=== PATIENT | male | born 1945 | race Caucasian/White ===

== ENCOUNTER 2017-06-26 08:39 | Outpatient (CLI) | payer MEDICARE ==
--- NOTE | 2017-06-26 11:54 | MRI ---
BRAIN MRI WITHOUT CONTRAST: Date: 06-26-17 Comparison: None. History: Meningioma. Technique: Multiplanar, multisequence MR imaging of the brain obtained without contrast. FINDINGS: Evaluation for intracranial neoplasia, specifically meningioma, is limited without contrast media. Prior CT of the head performed 11-13-16 demonstrated a 5-6 mm hyperdense focus in the high medial left parietal region. Gradient echo imaging demonstrates a focus of blooming artifact in this region eric suring 4-5 mm. Differential diagnosis would include a small nonspecific calcification or a tiny calc ified meningioma. No associated mass effect. 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 This was present on a cervical spine MRI performed 07-02-12. There are numerous foci of increased T2 and FLAIR signal throughout the periventricular deep and sub cortical white matter, evidence of small vessel disease. There is patchy increased T2 and FLAIR sign al within the fani, also on the basis of small vessel disease. A punctate focus of blooming artifact is noted on axial image 17 within the subcortical white matter of the posterior left parietooccipit al region, likely on the basis of a punctate focus of prior hemorrhage or calcification. Diffusion weighted imaging demonstrates no evidence for acute infarction. IMPRESSION: 1. No acute findings are seen. Punctate focus of blooming artifact in the high left medial parietal region correlates with the prior abnormality on CT which likely represents a small calcified meningi amanda or punctate calcification. 2. Prominent small vessel disease. POS: [facility]
== END 2017-06-26 08:40 | disposition home or self-care (01) ==
LOC: MRI 08:39
PROVIDERS: ATTEND Family Medicine
DX: D32.9 Benign neoplasm of meninges, unspecified (principal); I67.9 Cerebrovascular disease, unspecified
CPT/HCPCS: 70551

== ENCOUNTER 2017-10-27 07:07 | Emergency (ER) | payer MEDICARE ==
[2017-10-27] MEDS ORDERED: Dexamethasone 10 MG/ML VIAL ONE (07:26)
== END 2017-10-27 07:50 | disposition home or self-care (01) ==
LOC: SCSER 07:07
DX: M54.5 Low back pain (principal); G89.29 Other chronic pain; I25.10 Atherosclerotic heart disease of native coronary artery without angina pectoris; K21.9 Gastro-esophageal reflux disease without esophagitis; E78.5 Hyperlipidemia, unspecified; F32.9 Major depressive disorder, single episode, unspecified; F17.210 Nicotine dependence, cigarettes, uncomplicated; X50.1XXA Overexertion from prolonged static or awkward postures, initial encounter
CPT/HCPCS: 96372; J1100

== ENCOUNTER 2017-11-27 10:40 | Outpatient (CLI) | payer MEDICARE ==
--- NOTE | 2017-11-27 13:09 | RAD ---
THREE VIWS LUMBAR SPINE: DATE: 11/27/17. HISTORY: Acute lumbar radiculopathy, low back pain with pain radiating down the left leg for a month. FINDINGS: Lateral neutral, flexion, and extension imaging provided. Neutral imaging demonstrates no anterolisthesis or retrolisthesis. At L2-3, there is disk space narr owing and anterior osteophyte formation. At the L5-S1 level, there is disk space narrowing with degenerative end plate change as well as vacuu m disk formation and anterior osteophyte formation. With flexion, there is anterolisthesis of L4 on L5 measuring approximately 3-4 mm. With extension, t here is no anterolisthesis or retrolisthesis. IMPRESSION: Lower lumbar spine degenerative change, most prominent at the L5-S1 level. With flexion, there is mil d anterolisthesis at L4-5 measuring in the 3-4 mm range. POS: [facility]
--- NOTE | 2017-11-27 13:58 | MRI ---
MRI LUMBAR SPINE: DATE: 11/27/17. COMPARISON: 09/22/07. HISTORY: Low back pain with pain radiating down the left lower extremity for a month, acute lumbar radiculopat hy. TECHNIQUE: Multiplanar, multisequence MR imaging of the lumbar spine provided without contrast. FINDINGS: The sagittal STIR imaging demonstrates no focal area of osseous marrow edema. No anterolisthesis or retrolisthesis noted within the lumbar spine. There is no anterolisthesis or retrolisthesis noted. T12-L1: Mild bilateral facet hypertrophy. Intervertebral disk height and signal intensity is within normal limits with no significant central canal or neural foraminal stenosis. L1-2: Intervertebral disk height and signal intensity is within normal limits. There is mild bilate ral facet hypertrophy with no significant central canal or neural foraminal stenosis. L2-3: There is disk space narrowing and disk desiccation with mild degenerative anterior edematous e nd plate change and minimal disk bulge. This results in no significant central canal stenosis. Ther e is a small left foraminal disk protrusion with no associated neural foraminal stenosis on either si de. L3-4: There is a left paracentral disk extrusion with inferior migration of approximately 1.4 cm in the left paracentral region causing prominent left lateral recess stenosis at the axial level of the superior portion of the L4 vertebral body. This is stable when compared to the 2008 exam. At L3-4, there is no significant neural foraminal stenosis. The extruded disk in the left paracentral region abuts the L4 nerve root on the left just proximal to the left neural foramen. L4-5: Intervertebral disk height is normal. Mild bilateral facet hypertrophy. There is no signific ant central canal or neural foraminal stenosis. L5-S1: There is bilateral facet hypertrophy. There is disk space narrowing, disk desiccation, and v acuum disk formation as well as disk bulge. There is no significant central canal stenosis. On the basis of disk bulge and osteophyte formation, there is moderate bilateral neural foraminal stenosis, left greater than right. Review of the peritoneal structures demonstrates an infrarenal abdominal aortic aneurysm measuring 3. 8 x 3.5 cm. There is diverticulosis of the imaged sigmoid colon. IMPRESSION: 1. Degenerative disk disease as above. The most significant finding in the lumbar spine is a disk e xtrusion in the left paracentral region at L3-4 causing left lateral recess stenosis and abutting the left L4 nerve root. 2. Infrarenal abdominal aortic aneurysm measuring in the 3.8 x 3.5 cm range. 3. Incompletely imaged sigmoid diverticulosis. CODE T POS: [facility]
== END 2017-11-27 10:41 | disposition home or self-care (01) ==
LOC: TBSIIMAG 10:40
PROVIDERS: ATTEND Neurological Surgery
DX: M47.26 Other spondylosis with radiculopathy, lumbar region (principal); M51.16 Intervertebral disc disorders with radiculopathy, lumbar region; M43.16 Spondylolisthesis, lumbar region; M48.061 Spinal stenosis, lumbar region without neurogenic claudication; I71.4 Abdominal aortic aneurysm, without rupture
CPT/HCPCS: 72100; 72148

== ENCOUNTER 2024-01-21 09:40 | Outpatient (CLI) | payer MEDICARE | END 2024-01-21 09:41 | disposition home or self-care (01) | LOC: RAD 09:40 | PROVIDERS: ATTEND Internal Medicine | DX: R06.00 Dyspnea, unspecified (principal); R91.8 Other nonspecific abnormal finding of lung field; J44.9 Chronic obstructive pulmonary disease, unspecified | CPT/HCPCS: 71046 ==

== ENCOUNTER 2024-03-01 08:30 | Day surgery (SDC) | payer MEDICARE ==
[2024-03-01 08:48] LABS: #Basophils 0.06 10x3/uL (0.0-0.2); %Basophils 0.5 % (0.0-1.0); %Eosinophils 1.1 % (0.0-10.0); %Monocytes 7.6 % (0.0-10.0); %Neutrophils 74.3 % (42.0-75.0); Hematocrit 39.7 % (42.0-52.0); Hemoglobin 12.6 g/dL (14.0-18.0); Mean Corpuscular HGB CONC 31.7 g/dL (32.0-36.0); Mean Corpuscular Hemoglobin 27.2 pg (27.0-31.0); Mean Corpuscular Volume 85.6 fL (78.0-98.0); Mean Platelet Volume 9.6 fL (7.4-10.4); Platelet Count 245 10x3/uL (130-400); Red Blood Cell (RBC) Count 4.64 mill/uL (4.70-6.10)
[2024-03-01 09:02] LABS: INR-International Normal Ratio 1.1; Prothrombin Time 14.4 sec (12.0-14.7)
[2024-03-01 09:03] LABS: PTT 33.2 sec (22.9-36.1)
[2024-03-01 09:41] VITALS: BP 150/90; TEMP 97.4
[2024-03-01] MEDS ORDERED: Sodium Bicarbonate 2.5 MEQ/5 ML SDV ONE (09:57)
[2024-03-01] MEDS ORDERED: Lidocaine 1% PF 5 ML VIAL ONE (09:57)
[2024-03-01] MEDS ORDERED: Midazolam HCl 2 mg/2 ml Vial ONE (09:57)
[2024-03-01] MEDS ORDERED: fentaNYL 50 mcg/mL 1 mL Vial ONE (09:57)
== END 2024-03-01 14:00 | disposition home or self-care (01) ==
LOC: CT 08:30
PROVIDERS: ATTEND Internal Medicine
PROC: 0BBC3ZX Excision of Right Upper Lung Lobe, Percutaneous Approach, Diagnostic (ICD-10-PCS; principal; 2024-03-01)
DX: C34.11 Malignant neoplasm of upper lobe, right bronchus or lung (principal)
CPT/HCPCS: 32408; 36415; 71045; 77012; 85025; 85610; 85730; 88305; 88333; 88334; 88341; 88342; J2250; J3010

== ENCOUNTER 2024-03-25 11:12 | Outpatient (CLI) | payer MEDICARE ==
[2024-03-25] MEDS ORDERED: Magnevist 469MG/ML 20 ML VIAL ONE (11:20)
== END 2024-03-25 11:13 | disposition home or self-care (01) ==
LOC: MRI 11:12
PROVIDERS: ATTEND Internal Medicine Hematology & Oncology
DX: C34.81 Malignant neoplasm of overlapping sites of right bronchus and lung (principal); R90.82 White matter disease, unspecified
CPT/HCPCS: 70553; 76377; A9579

== ENCOUNTER 2024-03-26 08:45 | Outpatient (CLI) | payer MEDICARE | END 2024-03-26 08:46 | disposition home or self-care (01) | LOC: PET 08:45 | PROVIDERS: ATTEND Internal Medicine Hematology & Oncology | DX: C34.81 Malignant neoplasm of overlapping sites of right bronchus and lung (principal); I71.43 Infrarenal abdominal aortic aneurysm, without rupture; R59.0 Localized enlarged lymph nodes | CPT/HCPCS: 78815; A9552 ==

== ENCOUNTER → 2024-07-20 | Outpatient (CLI) | payer MEDICARE | LOC: PET 11:00 | PROVIDERS: ATTEND Internal Medicine Hematology & Oncology | DX: C34.81 Malignant neoplasm of overlapping sites of right bronchus and lung (principal); C21.0 Malignant neoplasm of anus, unspecified; R91.8 Other nonspecific abnormal finding of lung field | CPT/HCPCS: 78815; A9552 ==

== ENCOUNTER 2024-08-08 04:05 | Inpatient (IN) | payer MEDICARE ==
[2024-08-08] MEDS ORDERED: cefTRIAXone (ROCEPHIN) 1 GM VIAL ONE (04:23)
[2024-08-08] MEDS ORDERED: Sodium Chloride 0.9% 100 ML ONE (04:23)
[2024-08-08] MEDS ORDERED: Azithromycin 500 MG VIAL ONE (04:23)
[2024-08-08 04:25] LABS: Actual Bicarbonate (HCO3v) 23.1 mEq/L (22-28); Analyzer IN Cardio ER; Base Excess -4.4 mEq/L (-2.0 to +3.0); Calcium, Ionized (venous) 1.11 mmol/L (1.16-1.32); Chloride (VBG) 105 mmol/L (98-106); Hematocrit-VBG 39 % (42.0-52.0); Hemoglobin (Hb) 13.4 g/dL (12.6-17.4); Potassium (VBG) 3.95 mmol/L (3.70-5.30); Sodium 139 mmol/L (133-146); pH (venous) 7.263 (7.32-7.43)
[2024-08-08] MEDS ORDERED: Albuterol 2.5 MG (3 mL) NEB ONE (04:31)
[2024-08-08 04:42] LABS: Actual Bicarbonate (HCO3a) 20.2 mEq/L (22-28); Analyzer IN Cardio ER; Base Excess (BEa) -5.2 mEq/L (-2.0 to +3.0); CO2 Tension 38.9 mmHg (35.0-45.0); Hematocrit-ABG 36 % (42.0-52.0); Hemoglobin (Hb) 12.4 g/dL (14.0-18.0); O2 Tension (PaO2), arterial 243.1 mmHg (> 70.0); Potassium - ABG Lab 3.49 mmol/L (3.70-5.30); pH, Arterial 7.333 (7.35-7.45)
[2024-08-08] MEDS ORDERED: NOREPINEPHRINE 8 MG/250 ML-D5W 250 ML ONE (05:03)
[2024-08-08 05:15] LABS: ALT (SGPT) 14 U/L (8-55); AST (SGOT) 20 U/L (5-34); Albumin 3.5 g/dL (3.4-4.8); Alkaline Phosphatase 121 U/L (40-110); Anion Gap 14 mmol/L (10-20); BUN (Urea Nitrogen) 12 mg/dL (8.4-25.7); Bilirubin, Total 0.4 mg/dL (0.2-1.2); Calc. Creatinine Clearance 0 mL/min (70-130); Calcium 8.5 mg/dL (7.8-10.44); Carbon Dioxide 21 mmol/L (23-31); Chloride 106 mmol/L (98-107); Estimated GFR 88; Globulin 3.9 g/dL (2.4-3.5); Glucose 216 mg/dL (83-110); Magnesium 2.7 mg/dL (1.6-2.6); Potassium 3.8 mmol/L (3.5-5.1); Protein, Total 7.4 g/dL (5.8-8.1); Sodium 137 mmol/L (136-145)
[2024-08-08 05:18] LABS: ALV-art Gradient 136.075 mmHg (0-20); Puncture Site Right Radial artery
[2024-08-08 05:19] LABS: #Basophils Less than 0.03 10x3/uL (0.0-0.2); %Basophils 0.2 % (0.0-1.0); %Eosinophils 1.4 % (0.0-10.0); %Lymphocytes 11.6 % (21.0-51.0); %Monocytes 6.8 % (0.0-10.0); %Neutrophils 79.5 % (42.0-75.0); Hematocrit 38.2 % (42.0-52.0); Hemoglobin 12.5 g/dL (14.0-18.0); Mean Corpuscular HGB CONC 32.7 g/dL (32.0-36.0); Mean Corpuscular Hemoglobin 31.4 pg (27.0-31.0); Mean Platelet Volume 10.8 fL (7.4-10.4); Platelet Count 134 10x3/uL (130-400); RBC Distribution Width 13.8 % (11.5-14.5); Red Blood Cell (RBC) Count 3.98 mill/uL (4.70-6.10)
[2024-08-08 05:20] LABS: Troponin I 0.062 ng/mL (< 0.028)
[2024-08-08] MEDS ORDERED: Iopamidol-370 76% 500 ML MDV (1 ML CHARGE) ONE (08:25)
[2024-08-08] MEDS ORDERED: NOREPINEPHRINE 8 MG/250 ML-D5W 250 ML IVPB PRN (08:40)
[2024-08-08] MEDS ORDERED: Ondansetron PF 4 MG/2 ML Vial IVP PRN (08:40)
[2024-08-08] MEDS ORDERED: Electrolyte Replacement Protocol 1 EACH IVPB SCH (08:40)
[2024-08-08] MEDS ORDERED: FLUTICASONE PROPION IH SCH (09:00)
[2024-08-08] MEDS ORDERED: SALMETEROL IH SCH (09:00)
[2024-08-08] MEDS ORDERED: [UNRECOGNIZED DRUG - OTHER] IH SCH (09:00)
[2024-08-08] MEDS ORDERED: Dextrose 5% in Water 1,000 ML IV PRN (09:09)
[2024-08-08] MEDS ORDERED: Dextrose 50% Abboject 50 ML SYRINGE SLOW IVP PRN (09:09)
[2024-08-08] MEDS ORDERED: Glucagon 1 MG/ML KIT IM PRN (09:09)
[2024-08-08] MEDS: FLUoxetine HCl 20 MG CAP PO SCH (09:17)
[2024-08-08] MEDS: Pantoprazole DR 40 MG TAB PO SCH (09:17)
[2024-08-08] MEDS: Tamsulosin HCl 0.4 MG CAP PO SCH (09:18)
[2024-08-08 09:19] LABS: Troponin I 0.252 ng/mL (< 0.028)
[2024-08-08 09:25] VITALS: BMI 19.6
[2024-08-08] MEDS: Ipratropium/Albuterol 3 ML NEB EZPAP SCH (10:56)
[2024-08-08] MEDS ORDERED: methylPREDNISolone Sod Succ 40 MG VIAL IVP SCH (12:00)
[2024-08-08] MEDS ORDERED: methylPREDNISolone Sod Succ/PF 125 MG/2 ML VIAL IVP SCH (12:00)
[2024-08-08 12:54] LABS: Troponin I 0.273 ng/mL (< 0.028)
[2024-08-08] MEDS ORDERED: Ipratropium/Albuterol 3 ML NEB NEB SCH (13:00)
[2024-08-08] MEDS: Acetaminophen 325 MG TAB PO PRN (17:58)
[2024-08-08] MEDS: Mometasone 200 MCG/Formoterol 5 MCG 120 PUFF INHALER INH SCH (19:12)
[2024-08-08] MEDS: Gabapentin 300 MG CAP PO SCH (20:51)
[2024-08-08] MEDS: methylPREDNISolone Sod Succ 40 MG VIAL IVP SCH (20:51)
[2024-08-08] MEDS ORDERED: Albuterol 200 PUFF (6.7GM INHALER) INH PRN (23:45)
[2024-08-09] MEDS: Sodium Chloride 0.65% Nasal 44 ML BOT EA NARE PRN (00:47)
[2024-08-09] MEDS: cefTRIAXone\\ROCEPHIN 1 GM in Sodium Chloride 0.9% 100 ML IVPB SCH (05:11)
[2024-08-09 05:22] LABS: Actual Bicarbonate (HCO3v) 23.4 mEq/L (22-28); Base Excess -1.5 mEq/L (-2.0 to +3.0); Calcium, Ionized (venous) 1.11 mmol/L (1.16-1.32); Chloride (VBG) 106 mmol/L (98-106); Hematocrit-VBG 30 % (42.0-52.0); Hemoglobin (Hb) 10.3 g/dL (12.6-17.4); Potassium (VBG) 3.75 mmol/L (3.70-5.30); Sodium 139 mmol/L (133-146); pH (venous) 7.381 (7.32-7.43)
[2024-08-09 05:47] LABS: ALT (SGPT) 11 U/L (8-55); AST (SGOT) 14 U/L (5-34); Alkaline Phosphatase 78 U/L (40-110); Anion Gap 14 mmol/L (10-20); BUN (Urea Nitrogen) 21 mg/dL (8.4-25.7); Bilirubin, Total 0.4 mg/dL (0.2-1.2); Calc. Creatinine Clearance 62 mL/min (70-130); Calcium 8.1 mg/dL (7.8-10.44); Carbon Dioxide 21 mmol/L (23-31); Chloride 107 mmol/L (98-107); Estimated GFR 88; Glucose 152 mg/dL (83-110); Potassium 3.7 mmol/L (3.5-5.1); Sodium 138 mmol/L (136-145)
[2024-08-09 05:52] LABS: #Basophils Less than 0.03 10x3/uL (0.0-0.2); #Eosinophils Less than 0.03 10x3/uL (0.0-0.7); %Lymphocytes 4.9 % (21.0-51.0); %Monocytes 4.7 % (0.0-10.0); %Neutrophils 89.9 % (42.0-75.0); Hemoglobin 9.2 g/dL (14.0-18.0); Mean Corpuscular HGB CONC 32.9 g/dL (32.0-36.0); Mean Corpuscular Hemoglobin 31.4 pg (27.0-31.0); Mean Corpuscular Volume 95.6 fL (78.0-98.0); Mean Platelet Volume 10.6 fL (7.4-10.4); Platelet Count 121 10x3/uL (130-400); RBC Distribution Width 14.1 % (11.5-14.5); Red Blood Cell (RBC) Count 2.93 mill/uL (4.70-6.10)
[2024-08-09] MEDS: Insulin Lispro 100 UNIT/ML 10 ML VIAL SC PRN (07:19)
[2024-08-09] MEDS: Enoxaparin 40 MG (0.4 mL) SYRINGE SC SCH (09:24)
[2024-08-09] MEDS: Azithromycin 500 MG in Sodium Chloride 0.9% 250 ML 250 ML IVPB SCH (09:25)
[2024-08-09] MEDS ORDERED: HYDROcodone/Acetaminophen 5/325 mg Tablet PO PRN (11:58)
[2024-08-09 12:44] LABS: Magnesium 2.1 mg/dL (1.6-2.6)
[2024-08-09 12:50] LABS: Troponin I 0.138 ng/mL (< 0.028)
[2024-08-09] MEDS: Potassium Chloride 20 MEQ TAB PO SCH ×2 (16:35→16:36)
[2024-08-09] MEDS: Temazepam 15 MG CAP PO SCH (19:56)
[2024-08-09] MEDS: Simvastatin 10 MG TAB PO SCH (19:57)
[2024-08-10 04:51] LABS: Anion Gap 11 mmol/L (10-20); BUN (Urea Nitrogen) 19 mg/dL (8.4-25.7); Calc. Creatinine Clearance 63 mL/min (70-130); Calcium 8.1 mg/dL (7.8-10.44); Carbon Dioxide 25 mmol/L (23-31); Chloride 108 mmol/L (98-107); Estimated GFR 90; Glucose 94 mg/dL (83-110); Magnesium 2.2 mg/dL (1.6-2.6); Potassium 4.6 mmol/L (3.5-5.1); Sodium 139 mmol/L (136-145)
[2024-08-10 07:15] LABS: Actual Bicarbonate (HCO3a) 25.8 mEq/L (22-28); Base Excess (BEa) -1.3 mEq/L (-2.0 to +3.0); CO2 Tension 54.1 mmHg (35.0-45.0); Carboxyhemoglobin (COHb) 0.5 gm% (0.0-3.0); Hematocrit-ABG 36 % (42.0-52.0); Hemoglobin (Hb) 12.2 g/dL (14.0-18.0); O2 Tension (PaO2), arterial 65.5 mmHg (> 70.0); Potassium - ABG Lab 4.77 mmol/L (3.70-5.30); pH, Arterial 7.297 (7.35-7.45)
[2024-08-10 07:17] LABS: ALV-art Gradient 66.515 mmHg (0-20); Puncture Site Left Radial artery
[2024-08-10 07:34] LABS: Lactic Acid 1.34 mmol/L (0.5-2.2)
[2024-08-10] MEDS: Morphine 2 MG/ML VIAL SLOW IVP SCH (07:51)
[2024-08-10] MEDS: predniSONE 20 MG TAB PO SCH (07:52)
[2024-08-10] MEDS: Spironolactone 25 MG TAB PO SCH (07:52)
[2024-08-10] MEDS: Sacubitril 24MG/Valsartan 26 MG TAB PO SCH (08:01)
[2024-08-10] MEDS: Ipratropium/Albuterol 3 ML NEB NEB SCH ×2 (08:17→17:04)
[2024-08-10] MEDS: methylPREDNISolone Sod Succ 40 MG VIAL IVP SCH ×2 (08:48→11:25)
[2024-08-10] MEDS: Furosemide 40 MG (4 mL) VIAL SLOW IVP SCH (08:50)
[2024-08-10] MEDS ORDERED: Non-Formulary Item 1 EACH (Pantoprazole Sodium [Pantoprazole Sodium] 20 MG Tablet.Dr) PO SCH (09:00)
[2024-08-10] MEDS ORDERED: Lisinopril 10 MG TAB PO SCH (09:00)
[2024-08-10 09:15] LABS: Actual Bicarbonate (HCO3v) 27.3 mEq/L (22-28); Base Excess 1.5 mEq/L (-2.0 to +3.0); Calcium, Ionized (venous) 1.11 mmol/L (1.16-1.32); Chloride (VBG) 103 mmol/L (98-106); Hematocrit-VBG 34 % (42.0-52.0); Hemoglobin (Hb) 11.5 g/dL (12.6-17.4); Potassium (VBG) 4.51 mmol/L (3.70-5.30); Sodium 139 mmol/L (133-146); pH (venous) 7.374 (7.32-7.43)
[2024-08-10] MEDS ORDERED: Magnesium Sulfate 3 GM in Sodium Chloride 0.9% 100 ML IVPB SCH (09:45)
[2024-08-10] MEDS: Magnesium 2 GM/50 ML(in water) 2 GM in Premix 1 BAG IVPB SCH (09:51)
[2024-08-10] MEDS: Morphine 2 MG/ML VIAL SLOW IVP PRN (09:59)
[2024-08-10] MEDS: Ipratropium/Albuterol 3 ML NEB EZPAP SCH (10:48)
[2024-08-10] MEDS: guaiFENesin 200 MG TAB PO PRN (11:26)
[2024-08-10] MEDS ORDERED: methylPREDNISolone Sod Succ 40 MG VIAL IVP SCH (21:00)
[2024-08-10] MEDS: Insulin Lispro 100 UNIT/ML 10 ML VIAL SC PRN (21:31)
[2024-08-11] MEDS ORDERED: methylPREDNISolone Sod Succ 40 MG VIAL ONE (21:44)
[2024-08-11] MEDS ORDERED: Sacubitril 24MG/Valsartan 26 MG TAB ONE (21:44)
[2024-08-11] MEDS ORDERED: Gabapentin 300 MG CAP ONE (21:44)
[2024-08-11] MEDS ORDERED: Temazepam 15 MG CAP ONE (21:44)
[2024-08-11] MEDS ORDERED: hydrOXYzine 25 MG TAB ONE (21:44)
[2024-08-12] MEDS ORDERED: methylPREDNISolone Sod Succ 40 MG VIAL ONE ×3 (05:37→17:00)
[2024-08-12] MEDS ORDERED: cefTRIAXone (ROCEPHIN) 1 GM VIAL ONE (05:37)
[2024-08-12] MEDS ORDERED: Tamsulosin HCl 0.4 MG CAP ONE (08:37)
[2024-08-12] MEDS ORDERED: FLUoxetine HCl 20 MG CAP ONE (08:37)
[2024-08-12] MEDS ORDERED: Pantoprazole DR 40 MG TAB ONE (08:37)
[2024-08-12] MEDS ORDERED: Aspirin Chewable 81 MG TAB ONE (08:37)
[2024-08-12] MEDS ORDERED: Enoxaparin 40 MG (0.4 mL) SYRINGE ONE (08:37)
[2024-08-12] MEDS ORDERED: Sacubitril 24MG/Valsartan 26 MG TAB ONE (08:37)
[2024-08-12] MEDS ORDERED: Furosemide 20 MG TAB ONE (08:37)
[2024-08-12] MEDS ORDERED: Spironolactone 25 MG TAB ONE (08:37)
[2024-08-12] MEDS ORDERED: Temazepam 15 MG CAP ONE (21:43)
[2024-08-13] MEDS: methylPREDNISolone Sod Succ 40 MG VIAL ONE ×3 (00:07→01:25)
[2024-08-13] MEDS: Ipratropium/Albuterol 3 ML NEB ONE ×10 (00:07→22:02)
[2024-08-13] MEDS: Furosemide 20 MG TAB ONE ×4 (00:08→14:49)
[2024-08-13] MEDS: Aspirin 81 mg Enteric Coated Tablet ONE ×2 (00:09→10:42)
[2024-08-13] MEDS: Sacubitril 24MG/Valsartan 26 MG TAB ONE ×5 (00:09→21:16)
[2024-08-13] MEDS: Cefuroxime 250 MG TAB PO SCH (01:15)
[2024-08-13] MEDS ORDERED: ALPRAZolam 0.5 MG TAB PO PRN (02:00)
[2024-08-13 08:25] LABS: #Basophils 0.04 10x3/uL (0.0-0.2); %Basophils 0.3 % (0.0-1.0); %Eosinophils 0.2 % (0.0-10.0); %Lymphocytes 10.7 % (21.0-51.0); %Monocytes 8.3 % (0.0-10.0); %Neutrophils 79.1 % (42.0-75.0); Hematocrit 37.8 % (42.0-52.0); Mean Corpuscular HGB CONC 31.7 g/dL (32.0-36.0); Mean Corpuscular Hemoglobin 31.9 pg (27.0-31.0); Mean Corpuscular Volume 100.5 fL (78.0-98.0); Mean Platelet Volume 10.2 fL (7.4-10.4); Platelet Count 141 10x3/uL (130-400); Red Blood Cell (RBC) Count 3.76 mill/uL (4.70-6.10)
[2024-08-13 08:56] LABS: Anion Gap 11 mmol/L (10-20); BUN (Urea Nitrogen) 31 mg/dL (8.4-25.7); Calc. Creatinine Clearance 67 mL/min (70-130); Calcium 8.1 mg/dL (7.8-10.44); Carbon Dioxide 26 mmol/L (23-31); Chloride 108 mmol/L (98-107); Estimated GFR 91; Glucose 84 mg/dL (83-110); Potassium 4.3 mmol/L (3.5-5.1); Sodium 141 mmol/L (136-145)
[2024-08-13] MEDS: predniSONE 20 MG TAB PO SCH (10:42)
[2024-08-13] MEDS: Cefdinir 300 MG CAP PO SCH ×2 (14:49→21:05)
[2024-08-13] MEDS: FLU (Fluad Triv) TS24-25 (65UP)/MF59C/PF 45 MCG/0.5 ML Syringe IM ONE (14:49)
[2024-08-14] MEDS: Furosemide 20 MG TAB PO SCH (05:25)
[2024-08-14] MEDS: Ipratropium/Albuterol 3 ML NEB ONE (07:47)
[2024-08-14] MEDS: Sacubitril 24MG/Valsartan 26 MG TAB ONE ×2 (08:54→20:28)
[2024-08-14] MEDS: Aspirin 81 mg Enteric Coated Tablet ONE (08:58)
[2024-08-14] MEDS: Ipratropium/Albuterol 3 ML NEB NEB SCH (10:40)
[2024-08-14 16:02] VITALS: BMI 17.5
[2024-08-14] MEDS: methylPREDNISolone Sod Succ 40 MG VIAL ONE (20:20)
[2024-08-15] MEDS: Sacubitril 24MG/Valsartan 26 MG TAB ONE ×2 (08:28→20:20)
[2024-08-15 09:50] LABS: #Basophils 0.05 10x3/uL (0.0-0.2); %Basophils 0.4 % (0.0-1.0); %Eosinophils 2.3 % (0.0-10.0); %Lymphocytes 11.3 % (21.0-51.0); %Monocytes 8.9 % (0.0-10.0); %Neutrophils 73.5 % (42.0-75.0); Hemoglobin 12.8 g/dL (14.0-18.0); Mean Corpuscular HGB CONC 32.8 g/dL (32.0-36.0); Mean Corpuscular Hemoglobin 31.3 pg (27.0-31.0); Mean Corpuscular Volume 95.4 fL (78.0-98.0); Mean Platelet Volume 10.2 fL (7.4-10.4); Platelet Count 184 10x3/uL (130-400); RBC Distribution Width 13.7 % (11.5-14.5); Red Blood Cell (RBC) Count 4.09 mill/uL (4.70-6.10)
[2024-08-15 10:09] LABS: Anion Gap 13 mmol/L (10-20); BUN (Urea Nitrogen) 31 mg/dL (8.4-25.7); Calc. Creatinine Clearance 57 mL/min (70-130); Calcium 8.4 mg/dL (7.8-10.44); Carbon Dioxide 25 mmol/L (23-31); Chloride 100 mmol/L (98-107); Estimated GFR 89; Glucose 151 mg/dL (83-110); Potassium 3.8 mmol/L (3.5-5.1); Sodium 134 mmol/L (136-145)
[2024-08-15] MEDS: hydrOXYzine 25 MG TAB PO PRN (20:09)
[2024-08-16] MEDS: Ipratropium/Albuterol 3 ML NEB ONE (08:35)
[2024-08-16] MEDS: Sacubitril 24MG/Valsartan 26 MG TAB ONE (10:38)
[2024-08-16] MEDS: Furosemide 20 MG TAB ONE (13:58)
[2024-08-16 16:08] VITALS: BP 127/74; TEMP 97.6
[2024-08-16] MEDS ORDERED: Sacubitril 24MG/Valsartan 26 MG TAB PO SCH (21:00)
== END 2024-08-16 16:06 | disposition home or self-care (01) | DRG 280 ==
LOC: ERS 04:05 → CCU 08:32 → MSONC 20:18 → CCU 08-10 07:41 → T4-A 08-12 21:20
PROVIDERS: ADMIT Internal Medicine; ATTEND Hospitalist
DX: I11.0 Hypertensive heart disease with heart failure (principal); I50.23 Acute on chronic systolic (congestive) heart failure; I21.A1 Myocardial infarction type 2; J96.21 Acute and chronic respiratory failure with hypoxia; J96.22 Acute and chronic respiratory failure with hypercapnia; I47.20 Ventricular tachycardia, unspecified; J44.1 Chronic obstructive pulmonary disease with (acute) exacerbation; E44.1 Mild protein-calorie malnutrition; Z68.1 Body mass index [BMI] 19.9 or less, adult; C34.91 Malignant neoplasm of unspecified part of right bronchus or lung; R64 Cachexia; I25.10 Atherosclerotic heart disease of native coronary artery without angina pectoris; E78.00 Pure hypercholesterolemia, unspecified; G89.29 Other chronic pain; N40.0 Benign prostatic hyperplasia without lower urinary tract symptoms; F32.A Depression, unspecified; F17.210 Nicotine dependence, cigarettes, uncomplicated; K21.9 Gastro-esophageal reflux disease without esophagitis; F41.1 Generalized anxiety disorder; I71.40 Abdominal aortic aneurysm, without rupture, unspecified; G47.00 Insomnia, unspecified; Z85.048 Personal history of other malignant neoplasm of rectum, rectosigmoid junction, and anus; Z95.1 Presence of aortocoronary bypass graft; Z92.3 Personal history of irradiation; Z71.6 Tobacco abuse counseling; Z88.8 Allergy status to other drugs, medicaments and biological substances; Z85.828 Personal history of other malignant neoplasm of skin; Z79.899 Other long term (current) drug therapy; Z79.891 Long term (current) use of opiate analgesic; Z99.81 Dependence on supplemental oxygen
CPT/HCPCS: 36415; 36416; 36600; 71045; 71275; 80048; 80053; 82805; 83605; 83735; 83880; 84484; 85025; 85379; 87040; 87633; 90653; 93005; 93306; 94640; 94660; 96361; 96365; 96374; 99292; J0456; J0696; J1642; J1650; J1815; J1940; J2272; J2919; J3475; J7050; J7512; J7611; J7620; Q9967

== ENCOUNTER 2024-10-12 11:45 | Outpatient (CLI) | payer MEDICARE | END 2024-10-12 11:46 | disposition home or self-care (01) | LOC: PET 11:45 | PROVIDERS: ATTEND Radiology Radiation Oncology | DX: C34.11 Malignant neoplasm of upper lobe, right bronchus or lung (principal); I71.40 Abdominal aortic aneurysm, without rupture, unspecified | CPT/HCPCS: 78815; A9552 ==

== ENCOUNTER 2025-05-10 09:30 | Outpatient (CLI) | payer MEDICARE | END 2025-05-10 09:31 | LOC: PET 09:30 | PROVIDERS: ATTEND Internal Medicine Hematology & Oncology | DX: C34.81 Malignant neoplasm of overlapping sites of right bronchus and lung (principal); D50.8 Other iron deficiency anemias; R91.1 Solitary pulmonary nodule; Z79.899 Other long term (current) drug therapy | CPT/HCPCS: 78815; A9552 ==

== ENCOUNTER 2025-07-26 11:47 | Inpatient (IN) | payer MEDICARE ==
[2025-07-26] MEDS ORDERED: Iopamidol-370 76% 500 ML MDV (1 ML CHARGE) ONE (12:34)
[2025-07-26 13:26] LABS: #Basophils 0.05 10x3/uL (0.0-0.2); #Eosinophils 0.04 10x3/uL (0.0-0.7); #Monocytes 1.13 10x3/uL (0.11-0.59); #Neutrophils 15.32 10x3/uL (1.40-6.50); %Basophils 0.3 % (0.0-1.0); %Eosinophils 0.2 % (0.0-10.0); %Lymphocytes 4.3 % (21.0-51.0); %Monocytes 6.5 % (0.0-10.0); %Neutrophils 88.1 % (42.0-75.0); Hematocrit 37.8 % (42.0-52.0); Hemoglobin 12.3 g/dL (14.0-18.0); Mean Corpuscular Hemoglobin 31.2 pg (27.0-31.0); Mean Corpuscular Volume 95.9 fL (78.0-98.0); Platelet Count 115 10x3/uL (130-400); Red Blood Cell (RBC) Count 3.94 mill/uL (4.70-6.10); White Blood Cell (WBC) Count 17.38 10x3/uL (4.8-10.8)
[2025-07-26 13:38] LABS: ALT (SGPT) 34 U/L (Less than 45); AST (SGOT) 23 U/L (11-34); Albumin 3.7 g/dL (3.1-4.5); Alkaline Phosphatase 114 U/L (40-110); Anion Gap 16 mmol/L (10-20); BUN (Urea Nitrogen) 18 mg/dL (8.4-25.7); Bilirubin, Total 1.0 mg/dL (0.3-1.2); Calc. Creatinine Clearance 0 mL/min (70-130); Calcium 8.6 mg/dL (7.8-10.44); Carbon Dioxide 19 mmol/L (23-31); Chloride 105 mmol/L (98-107); Globulin 3.8 g/dL (2.4-3.5); Glucose 105 mg/dL (83-110); Lipase 12 U/L (8-78); Magnesium 2.0 mg/dL (1.6-2.6); Potassium 5.1 mmol/L (3.5-5.1); Sodium 135 mmol/L (136-145)
[2025-07-26 14:02] LABS: INR-International Normal Ratio 1.2; Prothrombin Time 15.6 sec (12.0-14.7)
[2025-07-26 14:03] LABS: PTT 38.9 sec (22.9-36.1)
[2025-07-26] MEDS ORDERED: Ketorolac Tromethamine 30 MG (1 mL) VIAL ONE (15:49)
[2025-07-26] MEDS ORDERED: Senokot S 8.6-50 MG TAB PO PRN (16:26)
[2025-07-26] MEDS ORDERED: Ondansetron PF 4 MG/2 ML Vial IVP PRN (16:26)
[2025-07-26] MEDS: Vancomycin 1.5 GM / NS 500ML VIAL-2-BAG IVPB SCH (17:18)
[2025-07-26 17:56] VITALS: BMI 17.0
[2025-07-26] MEDS: Mometasone 200 MCG/Formoterol 5 MCG 120 PUFF INHALER INH SCH (19:32)
[2025-07-26] MEDS: Sacubitril 24MG/Valsartan 26 MG TAB PO SCH (20:12)
[2025-07-26] MEDS: Simvastatin 10 MG TAB PO SCH (20:12)
[2025-07-26] MEDS: Gabapentin 300 MG CAP PO SCH (20:12)
[2025-07-27] MEDS: HYDROcodone/Acetaminophen 5/325 mg Tablet PO PRN (03:23)
[2025-07-27 05:56] LABS: Anion Gap 11 mmol/L (10-20); BUN (Urea Nitrogen) 20 mg/dL (8.4-25.7); Calc. Creatinine Clearance 44 mL/min (70-130); Calcium 7.9 mg/dL (7.8-10.44); Carbon Dioxide 24 mmol/L (23-31); Chloride 106 mmol/L (98-107); Glucose 102 mg/dL (83-110); Potassium 4.5 mmol/L (3.5-5.1); Sodium 136 mmol/L (136-145)
[2025-07-27 05:58] LABS: #Basophils 0.03 10x3/uL (0.0-0.2); #Eosinophils 0.26 10x3/uL (0.0-0.7); #Monocytes 0.79 10x3/uL (0.11-0.59); #Neutrophils 11.46 10x3/uL (1.40-6.50); %Basophils 0.2 % (0.0-1.0); %Eosinophils 2.0 % (0.0-10.0); %Lymphocytes 4.4 % (21.0-51.0); %Monocytes 6.0 % (0.0-10.0); %Neutrophils 86.7 % (42.0-75.0); Hematocrit 30.6 % (42.0-52.0); Hemoglobin 9.7 g/dL (14.0-18.0); Mean Corpuscular Hemoglobin 31.4 pg (27.0-31.0); Mean Corpuscular Volume 99.0 fL (78.0-98.0); Platelet Count 95 10x3/uL (130-400); Red Blood Cell (RBC) Count 3.09 mill/uL (4.70-6.10); White Blood Cell (WBC) Count 13.21 10x3/uL (4.8-10.8)
[2025-07-27] MEDS: Pantoprazole 40 MG DR.TAB PO SCH (09:29)
[2025-07-27] MEDS: Enoxaparin 40 MG (0.4 mL) SYRINGE SC SCH (09:29)
[2025-07-27] MEDS: Acetaminophen 325 MG TAB PO PRN (09:29)
[2025-07-27] MEDS: Furosemide 20 MG TAB PO SCH (09:33)
[2025-07-27 09:40] VITALS: BMI 17.0
[2025-07-28 05:34] LABS: Anion Gap 11 mmol/L (10-20); BUN (Urea Nitrogen) 17 mg/dL (8.4-25.7); Calc. Creatinine Clearance 52 mL/min (70-130); Calcium 8.1 mg/dL (7.8-10.44); Carbon Dioxide 23 mmol/L (23-31); Chloride 105 mmol/L (98-107); Glucose 79 mg/dL (83-110); Magnesium 2.0 mg/dL (1.6-2.6); Potassium 4.1 mmol/L (3.5-5.1); Sodium 135 mmol/L (136-145)
[2025-07-28] MEDS: Enoxaparin 30 MG (0.3 mL) SYRINGE SC SCH (09:37)
[2025-07-28] MEDS: Albuterol 200 PUFF (6.7GM INHALER) INH PRN (16:53)
[2025-07-28] MEDS: Melatonin 3 MG TAB PO PRN (20:51)
[2025-07-28] MEDS: PNEUMOC 20-VAL CONJ-DIP CRM/PF 0.5 ML SYRINGE IM ONE (20:53)
[2025-07-29 08:07] VITALS: BP 116/86; TEMP 97.4
== END 2025-07-29 14:43 | disposition home or self-care (01) | DRG 871 ==
LOC: ERS 11:47 → ERHOLD 15:39 → T4-B 19:33 → OBSVTOIN 07-27 13:28
PROVIDERS: ADMIT Internal Medicine; ATTEND Hospitalist
PROC: 3E03329 Introduction of Other Anti-infective into Peripheral Vein, Percutaneous Approach (ICD-10-PCS; principal; 2025-07-27)
PROC: 0T9B70Z Drainage of Bladder with Drainage Device, Via Natural or Artificial Opening (ICD-10-PCS; principal; 2025-07-27)
PROC: 3E0234Z Introduction of Serum, Toxoid and Vaccine into Muscle, Percutaneous Approach (ICD-10-PCS; principal; 2025-07-27)
DX: A41.9 Sepsis, unspecified organism (principal); E43 Unspecified severe protein-calorie malnutrition; J18.9 Pneumonia, unspecified organism; C34.90 Malignant neoplasm of unspecified part of unspecified bronchus or lung; J96.11 Chronic respiratory failure with hypoxia; Z68.1 Body mass index [BMI] 19.9 or less, adult; J44.0 Chronic obstructive pulmonary disease with (acute) lower respiratory infection; Z66 Do not resuscitate; R65.20 Severe sepsis without septic shock; I25.10 Atherosclerotic heart disease of native coronary artery without angina pectoris; K21.9 Gastro-esophageal reflux disease without esophagitis; M54.9 Dorsalgia, unspecified; I50.9 Heart failure, unspecified; F32.A Depression, unspecified; D69.6 Thrombocytopenia, unspecified; F17.210 Nicotine dependence, cigarettes, uncomplicated; I25.2 Old myocardial infarction; Z95.1 Presence of aortocoronary bypass graft; Z98.890 Other specified postprocedural states; Z88.8 Allergy status to other drugs, medicaments and biological substances; Z79.899 Other long term (current) drug therapy; Z85.048 Personal history of other malignant neoplasm of rectum, rectosigmoid junction, and anus; Z23 Encounter for immunization
CPT/HCPCS: 36415; 71275; 80048; 80053; 83605; 83690; 83735; 83880; 84443; 84484; 85025; 85610; 85730; 87040; 93005; 93010; 94664; 96365; 96367; 96375; G0378; J0692; J1650; J1885; J2270; Q9967